=== PATIENT | male | born 1945 | race Caucasian/White ===

== ENCOUNTER 2024-11-17 21:12 | Inpatient (IN) ==
[2024-11-17] MEDS: FAMOTIDINE 20MG IV PUSH 20 MG/5 ML SYR IV STA (21:58)
[2024-11-17 22:08] LABS: Hematocrit (blood only) 44.9 % (42.0-52.0); Hemoglobin 14.5 g/dl (14.0-18.0); Immature Granulocytes # (auto) 0.02 K/uL (0.01-0.20); Immature Granulocytes % (auto) 0.2 %; Mean Corpuscular Hemoglobin 29.8 pg (25.0-34.0); Mean Corpuscular Volume 92.2 fL (80.0-100.0); Platelet Count 176 K/uL (130-400); RDW Standard Deviation 46.9 fL (36.4-46.3); Red Blood Count 4.87 M/uL (4.70-6.10); White Blood Count 8.15 K/ul (4.8-10.8)
[2024-11-17 22:24] LABS: Alanine Aminotransferase 19.0 U/L (7-52); Albumin Globulin Ratio 1.9 (0.9-2); Alkaline Phosphatase 60.0 U/L (34-104); Anion Gap 8.0 (3-11); Bilirubin,Total 0.6 mg/dl (0.2-1.0); Blood Urea Nitrogen 23.0 mg/dl (6-23); Calcium 9.8 mg/dl (8.6-10.3); Carbon Dioxide 24.0 mmol/L (21-32); Chloride 111.0 mmol/L (98-107); Creatinine Clr Calc Pharmacy 49.1 ml/min; Globulin 2.3 gm/dl (2.5-4.0); Glucose 111.0 mg/dl (70-99(Fasting)); Magnesium 2.2 mg/dl (1.7-2.4); Potassium 4.1 mmol/L (3.5-5.1); Sodium 143.0 mmol/L (136-145); Total Protein 6.6 gm/dl (6.0-8.3)
[2024-11-17] MEDS: OPTIRAY 320 100ml IV ONE (22:44)
[2024-11-17 22:55] LABS: INR 1.0 (0.9-1.1); Partial Thromboplastin Time 30 Seconds (21-31); Prothrombin Time 11.1 Seconds (9.0-12.0)
--- NOTE | 2024-11-17 23:50 | CT Scan Report ---
Exam(s): CT ABDOMEN + PELVIS With Contrast IV Amt: 93 cc's optiray 320 EXAM: CT Abdomen and Pelvis With Intravenous Contrast CLINICAL HISTORY: Reason for exam: lower abd pain, rectal bleed. TECHNIQUE: Axial computed tomography images of the abdomen and pelvis with intravenous contrast. CTDI is 25.99 mGy and DLP is 1496.73 mGy-cm. Automated exposure control was utilized for the study. A dose lowering technique was utilized adhering to the principles of ALARA. CONTRAST: Patient received 93 cc's optiray 320 of IV contrast COMPARISON: No relevant prior studies available. FINDINGS: Lung bases: Unremarkable. Heart: Coronary artery atherosclerosis. Mediastinum: Large hiatal hernia. ABDOMEN: Liver: Unremarkable. No mass. Gallbladder and bile ducts: Contracted gallbladder. No calcified stones. No ductal dilation. Pancreas: Unremarkable. No mass. No ductal dilation. Spleen: Unremarkable. No splenomegaly. Adrenals: Unremarkable. No mass. Kidneys and ureters: Unremarkable. No solid mass. No hydronephrosis. Stomach and bowel: Left hemicolon diverticulosis without evidence of acute diverticulitis. Intraluminal hyperdensity arising from the proximal sigmoid colon and extending distally to the rectum concerning for active gastrointestinal bleeding. No obstruction. PELVIS: Appendix: No evidence of appendicitis. Bladder: Unremarkable. No mass. Reproductive: Prostatomegaly. ABDOMEN and PELVIS: Intraperitoneal space: Unremarkable. No free air, significant free fluid, or fluid collection. Bones/joints: Degenerative change in the lumbar spine. No acute fracture. No dislocation. Soft tissues: Unremarkable. Vasculature: Atherosclerosis. Lymph nodes: Unremarkable. No enlarged lymph nodes. IMPRESSION: Intraluminal hyperdensity arising from the proximal sigmoid colon and extending distally to the rectum concerning for active gastrointestinal bleeding. Communications: Call Doctor Active Bleeding in any site Electronically signed by: Diane Marshall M.D. 11/17/24 23:49 PM
--- NOTE | 2024-11-17 23:54 | Emergency Department Note ---
History of Present Illness General Chief complaint: Rectal Bleed Stated complaint: RECTAL BLEEDING Time Seen by Provider: 11/17/24 21:26 History of Present Illness This 79-year-old male on Plavix for history of coronary artery disease presents to the ER for rectal bleeding. Patient states he felt some fullness in his rectum went to the bathroom and had an episode of bright red bleeding. This happened twice. He has had some mild leakage of blood. Nothing hemorrhaging. No history of GI bleeding in the past. Colonoscopy 9 years ago was normal. Patient has chest pain, dyspnea, lightheadedness, dizziness. No other blood thinners. No stool no blood. Home Medications Medication Instructions Recorded Confirmed Type levothyroxine 112 mcg tablet 112 mcg PO QAM 05/12/18 11/17/24 History (Synthroid) losartan 25 mg tablet 25 mg PO QAM 05/12/18 11/17/24 History metoprolol tartrate 50 mg tablet 25 mg PO BIDM 06/26/19 11/17/24 History rosuvastatin 20 mg tablet 20 mg PO HS 08/03/22 11/17/24 History clopidogrel 75 mg tablet 75 mg PO QAM #90 tabs 05/12/24 11/17/24 Rx Allergies Allergy/AdvReac Type Severity Reaction Status Date / Time No Known Allergies Allergy Verified 11/17/24 22:46 Past Med/Surg History Problem List (Updated 11/18/24 @ 00:30 by Mihaela Crowe PA-C) Hemorrhage of large intestine due to diverticular disease (Acute) Melena Encounter for pre-operative examination Hypertension Dyslipidemia CAD (coronary artery disease) Medical History Anemia CAD (coronary artery disease) Hyperlipidemia Hypertension Hypothyroidism Myocardial Infarction hx of 1990--heart cath with no stent--follows with Dr. Welch On anticoagulant therapy plavix daily Surgical History History of cardiac cath x3--1998 with no stent placed, 03/2008 with 2 stents placed and last 06/2020 @ [facility] with 1 stent placed History of colonoscopy History of esophagogastroduodenoscopy (EGD) History of heart artery stent 3 total--last 1 placed 06/2020, previous 2 placed 03/2008 History of surgical procedure on eye proper using laser History of tonsillectomy Family History Other No family history of adverse response to anesthesia Social History Smoking Status: Former smoker Tobacco Type: Cigarettes Smoking End Date: 1987; Second Hand Exposure: No; Do You Dip or Chew Tobacco: No; Hx Alcohol Use: No Hx Substance Use: No Preferred Language: Hungarian Communication Ability: Effective Loan Administrator Required: No Beliefs That Will Affect Care: None Current Living Situation: Spouse Other Information That Helps Us Care for You: No Feels Safe at Home: Yes Safety Concerns: Feels Safe At This Time Assistive Devices: Glasses and Hearing Aid - Bilateral Review of Systems A total of 10 systems reviewed and were otherwise negative Physical Exam Vital Signs Vital Signs - 24 hr 11/17/24 21:14 11/17/24 21:23 11/17/24 21:48 Temperature 36.5 C Temperature Source Temporal Artery Scan Pulse Rate 114 H 96 H 96 H Pulse Rhythm Regular Respiratory Rate 18 24 20 Respiratory Effort / Characteristics Non-Labored Spontaneous Respiratory Depth Normal Respiratory Pattern Regular Blood Pressure 122/75 165/112 H Blood Pressure Mean 90 126 Blood Pressure Position Sitting Pulse Oximetry 93 91 92 Oxygen Delivery Method Room Air Room Air Sepsis Recent Fever Within 48 Hours No Sepsis New/Unexplained Change in Mental Status N/A Sepsis Action Taken by Nursing No Action Required 11/17/24 22:00 11/17/24 22:30 11/17/24 23:00 Temperature Temperature Source Pulse Rate 92 H 94 H 84 Pulse Rhythm Respiratory Rate 20 22 20 Respiratory Effort / Characteristics Respiratory Depth Respiratory Pattern Blood Pressure 125/96 118/80 131/96 Blood Pressure Mean 105 100 107 Blood Pressure Position Pulse Oximetry 93 93 94 Oxygen Delivery Method Sepsis Recent Fever Within 48 Hours Sepsis New/Unexplained Change in Mental Status Sepsis Action Taken by Nursing 11/17/24 23:30 11/18/24 00:00 11/18/24 00:30 Temperature Temperature Source Pulse Rate 85 79 84 Pulse Rhythm Respiratory Rate 21 14 20 Respiratory Effort / Characteristics Respiratory Depth Respiratory Pattern Blood Pressure 137/90 126/81 124/92 Blood Pressure Mean 105 105 97 Blood Pressure Position Pulse Oximetry 95 96 94 Oxygen Delivery Method Sepsis Recent Fever Within 48 Hours Sepsis New/Unexplained Change in Mental Status Sepsis Action Taken by Nursing 11/18/24 01:00 Temperature Temperature Source Pulse Rate 78 Pulse Rhythm Respiratory Rate 15 Respiratory Effort / Characteristics Respiratory Depth Respiratory Pattern Blood Pressure 135/99 Blood Pressure Mean 111 Blood Pressure Position Pulse Oximetry 94 Oxygen Delivery Method Sepsis Recent Fever Within 48 Hours Sepsis New/Unexplained Change in Mental Status Sepsis Action Taken by Nursing VITALS: Vitals are noted on the nurse's note and reviewed by myself. Vital signs stable. GENERAL: Pleasant gentleman, in no acute distress, nondiaphoretic, well- developed well-nourished. SKIN: Capillary reflex less than 2 seconds. HEENT: Normocephalic. PERRLA. EOMI. Nares patent. Mucous membranes moist. Neck is supple without nuchal rigidity. HEART: Regular rate and rhythm LUNGS: Clear to auscultation bilaterally without wheezes, rales or rhonchi. No retractions or accessory muscle use. ABDOMEN: Positive bowel sounds x 4. Normal tympanic percussion. Soft, mild lower abdominal tenderness, without masses or organomegaly. Jean Baptiste sign negative. No guarding or rebound tenderness. no CVA tenderness Rectal exam: Multiple hemorrhoids, blood in the vault, no fissures or tears. MUSCULOSKELETAL: No gross musculoskeletal defects. NEURO: Patient was alert and oriented to person place and time. No focal neurological deficits. Course Administered Medications Discontinued Medications Pantoprazole Sodium 80 mg/ (Dextrose) 120 mls @ 480 mls/hr IV ONE STA Stop: 11/17/24 22:02 Last Infusion: 11/17/24 23:35 Dose: Infused Documented By: Admin: 11/17/24 23:02 Dose: 480 mls/hr Documented By: MIRNA Famotidine (Pepcid 20mg Iv Push) 20 mg in 5 mls @ 2.5 mls/min IV NOW STA Stop: 11/17/24 21:49 Last Admin: 11/17/24 21:58 Dose: 2.5 mls/min Documented By: MIRNA Piperacillin Sod/Tazobactam Sod (Zosyn) 4.5 gm in 100 mls @ 200 mls/hr IV NOW ONE; Protocol Stop: 11/18/24 00:31 Last Infusion: 11/18/24 01:18 Dose: Infused Documented By: Admin: 11/18/24 00:48 Dose: 200 mls/hr Documented By: MIRNA Ioversol (Optiray 320 100ml) 93 ml IV ONCE ONE Stop: 11/17/24 22:45 Last Admin: 11/17/24 22:44 Dose: 93 ml Documented By: ASHLIE Medical Decision Making Medical Records Attestation: I reviewed the patient's medical records. Home Medications Current Medication List: was personally reviewed by me Laboratory Data Attestation: I reviewed the patient's lab results. 11/17/24 23:37 11/17/24 21:26 Lab Results 11/17/24 11/17/24 11/17/24 Range/Units 21:26 21:28 23:37 WBC 8.15 (4.8-10.8) K/ul RBC 4.87 (4.70-6.10) M/uL Hgb 14.5 12.6 L (14.0-18.0) g/dl Hct 44.9 39.8 L (42.0-52.0) % MCV 92.2 (80.0-100.0) fL MCH 29.8 (25.0-34.0) pg MCHC 32.3 (32.0-36.0) g/dL RDW Std Deviation 46.9 H (36.4-46.3) fL RDW Coeff of Kamini 13.8 (11.5-14.5) % Plt Count 176 (130-400) K/uL MPV 10.6 (9.4-12.4) fL Immature Gran % (Auto) 0.2 % Neut % (Auto) 65.0 % Lymph % (Auto) 19.0 % [place] % (Auto) 14.2 % Eos % (Auto) 1.1 % Baso % (Auto) 0.5 % Neut # (Auto) 5.29 (1.40-6.50) K/uL Lymph # (Auto) 1.55 (1.20-3.40) K/uL [place] # (Auto) 1.16 H (0.11-0.59) K/uL Eos # (Auto) 0.09 (0.00-0.50) K/uL Baso # (Auto) 0.04 (0.00-0.20) K/uL Immature Gran # (Auto) 0.02 (0.01-0.20) K/uL PT 11.1 (9.0-12.0) Seconds INR 1.0 (0.9-1.1) APTT 30 (21-31) Seconds PTT Ratio 1.1 Sodium 143 (136-145) mmol/L Potassium 4.1 (3.5-5.1) mmol/L Chloride 111 H (98-107) mmol/L Carbon Dioxide 24 (21-32) mmol/L Anion Gap 8 (3-11) BUN 23 (6-23) mg/dl Creatinine 1.44 H (0.6-1.4) mg/dl Est Cr Clr Drug Dosing 49.1 ml/min eGFR 49.74 BUN/Creatinine Ratio 16.0 (10-20) Glucose 111 H (70-99(Fasting)) mg/dl Calcium 9.8 (8.6-10.3) mg/dl Magnesium 2.2 (1.7-2.4) mg/dl Total Bilirubin 0.6 (0.2-1.0) mg/dl AST 17 (13-39) U/L ALT 19 (7-52) U/L Alkaline Phosphatase 60 (34-104) U/L Troponin I High Sens 12.1 (0-20) pg/ml Total Protein 6.6 (6.0-8.3) gm/dl Albumin 4.3 (3.4-5.0) gm/dl Globulin 2.3 L (2.5-4.0) gm/dl Albumin/Globulin Ratio 1.9 (0.9-2) Blood Type A Positive Antibody Screen NEGATIVE Imaging Data Attestation: I personally reviewed and interpreted this imaging study as follows: Radiologist's Impression: Abdomen/Pelvis CT 11/17/24 21:48 CR Exam(s): CT ABDOMEN + PELVIS With Contrast IV Amt: 93 cc's optiray 320 EXAM: CT Abdomen and Pelvis With Intravenous Contrast CLINICAL HISTORY: Reason for exam: lower abd pain, rectal bleed. TECHNIQUE: Axial computed tomography images of the abdomen and pelvis with intravenous contrast. CTDI is 25.99 mGy and DLP is 1496.73 mGy-cm. Automated exposure control was utilized for the study. A dose lowering technique was utilized adhering to the principles of ALARA. CONTRAST: Patient received 93 cc's optiray 320 of IV contrast COMPARISON: No relevant prior studies available. FINDINGS: Lung bases: Unremarkable. Heart: Coronary artery atherosclerosis. Mediastinum: Large hiatal hernia. ABDOMEN: Liver: Unremarkable. No mass. Gallbladder and bile ducts: Contracted gallbladder. No calcified stones. No ductal dilation. Pancreas: Unremarkable. No mass. No ductal dilation. Spleen: Unremarkable. No splenomegaly. Adrenals: Unremarkable. No mass. Kidneys and ureters: Unremarkable. No solid mass. No hydronephrosis. Stomach and bowel: Left hemicolon diverticulosis without evidence of acute diverticulitis. Intraluminal hyperdensity arising from the proximal sigmoid colon and extending distally to the rectum concerning for active gastrointestinal bleeding. No obstruction. PELVIS: Appendix: No evidence of appendicitis. Bladder: Unremarkable. No mass. Reproductive: Prostatomegaly. ABDOMEN and PELVIS: Intraperitoneal space: Unremarkable. No free air, significant free fluid, or fluid collection. Bones/joints: Degenerative change in the lumbar spine. No acute fracture. No dislocation. Soft tissues: Unremarkable. Vasculature: Atherosclerosis. Lymph nodes: Unremarkable. No enlarged lymph nodes. IMPRESSION: Intraluminal hyperdensity arising from the proximal sigmoid colon and extending distally to the rectum concerning for active gastrointestinal bleeding. Communications: Call Doctor Active Bleeding in any site Electronically signed by: Diane Marshall M.D. 11/17/24 23:49 PM [facility] Narrative Prior records/ancillary studies reviewed. Triage Nursing notes reviewed. Additional history obtained from the family. The patient's history was concerning for possible gastrointestinal bleeding. Differential diagnosis: Etiologies such as diverticulosis, AVM, coagulopathy, colitis, inflammatory bowel disease, malignancy, Yuliya-Fritz tear, esophagitis, peptic ulcer disease, variceal bleed, gastritis, epistaxis, fissure, hemorrhoids, as well as others were entertained. Physical exam: As above. The patients vital signs were stable. ER treatment provided: An order was placed for continuous cardiac monitoring. The monitor shows a rate of 60-100 with a sinus rhythm per my interpretation. Pepcid and Protonix were ordered. Type and screen was sent On reassessment the patient felt better. Diagnostics interpreted by me: ECG: Ordered for GI bleed EKG: Normal sinus, ST depression in the lateral leads, no recent EKG. Impression normal sinus rhythm with ST depressions in the anterolateral leads independently interpreted by myself The labs Independently Interpreted by myself revealed stable H&H, negative troponin. No worrisome leukocytosis, creatinine 1.4 Imaging studies: Imaging was reviewed and read by radiology Consultation: A consultation was placed with GI, Dr. Larios. He recommends medical admission and supportive care. Consultation was placed with Dr. Zhu, hospitalist. The case was discussed and diagnostics were reviewed. The patient was evaluated in the ER for further treatment. This appears to be consistent with diverticular bleeding. GI and medicine were consulted. Patient was medicated as above. Type and screen was sent. Vital signs remained stable. Repeat H&H is lower than initial set.. He is on Plavix. GI recommends medical admission and will be consulted. Patient is agreeable treatment plan of admission. By the evaluation outlined above emergent etiologies such as esophageal perforation, peptic ulcer disease, variceal bleed, coagulopathy, gastritis, epistaxis, malignancy, as well as others were deemed relatively unlikely. The pt informed about the findings as listed above. All questions were answered and pleased with the treatment. The chart was completed utilizing [employer] Speech voice recognition software. Grammatical errors, random word insertions, pronoun errors, and incomplete sentences are an occassional consequence of this system due to software limitations, ambient noise, and hardware issues. Any formal questions or concerns about the content, text, or information contained within the body of this dictation should be directly addressed to the physician technology assistant for clarification. Impression & Plan Hemorrhage of large intestine due to diverticular disease Discharge Plan Visit Data Chief Complaint: Rectal Bleed Stated Complaint: RECTAL BLEEDING ED Provider: Afia William ED Midlevel Provider: Mihaela Crowe Discharge Problem: Hemorrhage of large intestine due to diverticular disease Patient Disposition: Admitted As Inpatient Condition: Fair Discharge Instructions Interventions: ED Discharge Assessment Last Done: 11/18/24 02:08
[2024-11-18] LABS: Hematocrit (blood only) 39.8 % (42.0-52.0); Hemoglobin 12.6 g/dl (14.0-18.0)
--- NOTE | 2024-11-18 00:03 | Emergency Department Note ---
ED Visit Note I was consulted by the Advanced Practice Provider. I personally made/approved the management plan and take responsibility for the patient management. This includes the aspects of: -History/Physical -MDM
[2024-11-18] MEDS: PIPERACILLIN/TAZOBACTAM 4.5 GM/100 ML BAG IV ONE (00:48)
--- NOTE | 2024-11-18 01:06 | History & Physical Report ---
Date of Service November 18, 2024 Assessment & Plan (1) Lower GI bleed: (2) Hypertension: (3) Dyslipidemia: (4) CAD (coronary artery disease): Plan 79yo male with history of HTN, HLP, CAD presenting with several episodes of passing large amounts of bright red blood per rectum. No abdominal pain. No nauseas/vomiting/hematemesis. Last bleed documented at 03:18 Hgb on arrival 14.5 -->> 12.6 CT results as above concerning for active bleed. Case and CT results was discussed between the ER and GI web application tester #Lower GIB - patient HD stable at present. Concerning finding of active bleed on CT imaging. Likely diverticular bleed? Diverticulosis noted on imaging. -Admit to PCU -Keep NPO -Maintain two large PIV (20g in Right forearm and 18g in Left antecub presently) -Monitor CBC q 6 hours - next at 0444. Transfuse for ongoing bleed, symptomatic anemia or Hgb < 8 in patient with known CAD. Patient has been consented for transfusion -GI consultation appreciated -Should bleeding worsen or patient become hemodynamically unstable ore requiring significant transfusion of blood products would need to pursue transfer to facility for IR embolization *Crossed for 2 units following most recent episode of LGIB. CBC is due at 0444. Patient remains HD stable and asymptomatic at this time. #CAD - patient denies chest pain, SOB. Troponin=12.1 -Hold Plavix, Losartan and Metoprolol for now -Continue Crestor #Hypertension -Hold antihypertensives in setting of active bleed - Metoprolol and Losartan #Hyperlipidemia -Continue Crestor #Hypothyroidism -Continue Synthroid History of Present Illness Chief Complaint: bright red blood per rectum Primary Care Provider: Roberto Leon MD Jovanny Glez is a pleasant 79yo male with history of HTN, HLP, CAD (s/p JACINDA to mid LAD 05/2018 and prior JACINDA to mid circumflex in 2007) on Plavix daily presenting with lower GI bleed. Patient reports this evening around 19:30 he had an episode of painless rectal bleeding. He reports passing a large amount of bright red blood into the toilet. He had a second episode approximately 75 minutes after the first and reports he has had recurrent episodes of bleeding ongoing approximately every 75 minutes. He reports some mild pressure in his lower abdomen but denies significant pain or cramping. He denies fever, chills, chest pain, SOB, dizziness. He has history of hemorrhoids but denies significant hemorrhoidal bleeding in the past. He has never had significant GIB in the past. He had his last colonoscopy at age 71 and was told that he likely would not need another. In the ER he is afebrile, HD stable He did have witnessed episodes of bleeding while in the ER He had another large, bloody BM at 03:18 ER Course: Pepcid 20mg IV Protonix 80mg IV Zosyn 4.5gm IV Allergies Allergy/AdvReac Type Severity Reaction Status Date / Time No Known Allergies Allergy Verified 11/17/24 22:46 Home Medications Medication Instructions Recorded Confirmed Type levothyroxine 112 mcg tablet 112 mcg PO QAM 05/12/18 11/17/24 History (Synthroid) losartan 25 mg tablet 25 mg PO QAM 05/12/18 11/17/24 History metoprolol tartrate 50 mg tablet 25 mg PO BIDM 06/26/19 11/17/24 History rosuvastatin 20 mg tablet 20 mg PO HS 08/03/22 11/17/24 History clopidogrel 75 mg tablet 75 mg PO QAM #90 tabs 05/12/24 11/17/24 Rx Past Med/Surg History Problem List (Updated 11/18/24 @ 03:37 by Patti Zhu DO) Lower GI bleed Hemorrhage of large intestine due to diverticular disease (Acute) Melena Encounter for pre-operative examination Hypertension Dyslipidemia CAD (coronary artery disease) Medical History Anemia On anticoagulant therapy plavix daily Myocardial Infarction hx of 1990--heart cath with no stent--follows with Dr. Welch Hypothyroidism Hypertension Hyperlipidemia Surgical History History of colonoscopy History of esophagogastroduodenoscopy (EGD) History of tonsillectomy History of surgical procedure on eye proper using laser History of heart artery stent 3 total--last 1 placed 06/2020, previous 2 placed 03/2008 History of cardiac cath x3--1998 with no stent placed, 03/2008 with 2 stents placed and last 06/2020 @ [facility] with 1 stent placed Family History Other No family history of adverse response to anesthesia Social History Smoking Status: Never smoker Second Hand Exposure: No; Do You Dip or Chew Tobacco: No; Hx Alcohol Use: No Hx Substance Use: No Preferred Language: Czech Communication Ability: Effective Director Perioperative Required: No Beliefs That Will Affect Care: None Current Living Situation: Spouse Feels Safe at Home: Yes Assistive Devices: Glasses Review of Systems Review of Systems: All systems reviewed & are unremarkable except as noted in HPI & below Physical Exam Physical Exam: General: patient resting comfortably, NAD, non-toxic in appearance, AA&O x 4 Skin: warm, dry, intact, no rashes or lesions HEENT: NC/AT, PERRL, EOMI, anicteric sclera, conjunctiva without injection, external ear normal to inspection and nontender, nares patent, moist mucus membranes, dentition intact, no oropharyngeal lesions, neck supple, trachea midline, no LAD, no thyromegaly, no JVD Heart: +S1/S2, regular, no m/r/g Lungs: equal air entry bilaterally, no rales/rhonchi/wheezes Abd: +BS, soft, NT/ND, no masses/organomegaly/ascites Ext: warm, 2+ pulses in UE/LE bilaterally, no clubbing/cyanosis or edema Neuro: nonfocal, patient AA&O x 4, speech intact, no facial droop, moving all extremities on command with equal strength 5/5 Results & Data Results & Data Vital Signs (Past 12 Hours) Vital Signs Temp Pulse Resp BP Pulse Ox O2 Del Method 11/17/24 23:30 85 21 137/90 95 11/17/24 23:00 84 20 131/96 94 11/17/24 22:30 94 H 22 118/80 93 11/17/24 22:00 92 H 20 125/96 93 11/17/24 21:48 96 H 20 92 Room Air 11/17/24 21:23 96 H 24 165/112 H 91 11/17/24 21:14 36.5 C 114 H 18 122/75 93 Room Air Laboratory Results Laboratory Results WBC 8.15 K/ul (4.8-10.8) 11/17/24 21: RBC 4.87 M/uL (4.70-6.10) 11/17/24 21: Hgb 12.6 g/dl (14.0-18.0) L 11/17/24 23:37 Hct 39.8 % (42.0-52.0) L 11/17/24 23:37 MCV 92.2 fL (80.0-100.0) 11/17/24 21: MCH 29.8 pg (25.0-34.0) 11/17/24 21: MCHC 32.3 g/dL (32.0-36.0) 11/17/24: RDW Std Deviation 46.9 fL (36.4-46.3) H 11/17/24: RDW Coeff of Kamini 13.8 % (11.5-14.5) 11/17/24: Plt Count 176 K/uL (130-400) 11/17/24: MPV 10.6 fL (9.4-12.4) 11/17/24 21: Immature Gran % (Auto) 0.2 % 11/17/24: Neut % (Auto) 65.0 % 11/17/24: Lymph % (Auto) 19.0 % 11/17/24: [place] % (Auto) 14.2 % 11/17/24: Eos % (Auto) 1.1 % 11/17/24: Baso % (Auto) 0.5 % 11/17/24: Neut # (Auto) 5.29 K/uL (1.40-6.50) 11/17/24 21: Lymph # (Auto) 1.55 K/uL (1.20-3.40) 11/17/24: [place] # (Auto) 1.16 K/uL (0.11-0.59) H 11/17/24: Eos # (Auto) 0.09 K/uL (0.00-0.50) 11/17/24: Baso # (Auto) 0.04 K/uL (0.00-0.20) 11/17/24: Immature Gran # (Auto) 0.02 K/uL (0.01-0.20) 11/17/24 21: PT 11.1 Seconds (9.0-12.0) 11/17/24 21: INR 1.0 (0.9-1.1) 11/17/24 21: APTT 30 Seconds (21-31) 11/17/24: PTT Ratio 1.1 11/17/24 21: Sodium 143 mmol/L (136-145) 11/17/24 21: Potassium 4.1 mmol/L (3.5-5.1) 11/17/24 21: Chloride 111 mmol/L (98-107) H 11/17/24 21: Carbon Dioxide 24 mmol/L (21-32) 11/17/24: Anion Gap 8 (3-11) 11/17/24 21: BUN 23 mg/dl (6-23) 11/17/24: Creatinine 1.44 mg/dl (0.6-1.4) H 11/17/24: Est Cr Clr Drug Dosing 49.1 ml/min 11/17/24 21: eGFR 49.74 11/17/24: BUN/Creatinine Ratio 16.0 (10-20) 11/17/24: Glucose 111 mg/dl (70-99(Fasting)) H 11/17/24: Calcium 9.8 mg/dl (8.6-10.3) 11/17/24: Magnesium 2.2 mg/dl (1.7-2.4) 11/17/24: Total Bilirubin 0.6 mg/dl (0.2-1.0) 11/17/24 21: AST 17 U/L (13-39) 11/17/24 21: ALT 19 U/L (7-52) 11/17/24 21: Alkaline Phosphatase 60 U/L (34-104) 11/17/24: Troponin I High Sens 12.1 pg/ml (0-20) 11/17/24: Total Protein 6.6 gm/dl (6.0-8.3) 11/17/24: Albumin 4.3 gm/dl (3.4-5.0) 07/12/25 21:26 Globulin 2.3 gm/dl (2.5-4.0) L 11/17/24 21:26 Albumin/Globulin Ratio 1.9 (0.9-2) 11/17/24 21:26 Blood Type A Positive 11/17/24 21:28 Antibody Screen NEGATIVE 11/17/24 21:28 Impressions Abdomen/Pelvis CT 11/17/24 21:48 CR Exam(s): CT ABDOMEN + PELVIS With Contrast IV Amt: 93 cc's optiray 320 EXAM: CT Abdomen and Pelvis With Intravenous Contrast CLINICAL HISTORY: Reason for exam: lower abd pain, rectal bleed. TECHNIQUE: Axial computed tomography images of the abdomen and pelvis with intravenous contrast. CTDI is 25.99 mGy and DLP is 1496.73 mGy-cm. Automated exposure control was utilized for the study. A dose lowering technique was utilized adhering to the principles of ALARA. CONTRAST: Patient received 93 cc's optiray 320 of IV contrast COMPARISON: No relevant prior studies available. FINDINGS: Lung bases: Unremarkable. Heart: Coronary artery atherosclerosis. Mediastinum: Large hiatal hernia. ABDOMEN: Liver: Unremarkable. No mass. Gallbladder and bile ducts: Contracted gallbladder. No calcified stones. No ductal dilation. Pancreas: Unremarkable. No mass. No ductal dilation. Spleen: Unremarkable. No splenomegaly. Adrenals: Unremarkable. No mass. Kidneys and ureters: Unremarkable. No solid mass. No hydronephrosis. Stomach and bowel: Left hemicolon diverticulosis without evidence of acute diverticulitis. Intraluminal hyperdensity arising from the proximal sigmoid colon and extending distally to the rectum concerning for active gastrointestinal bleeding. No obstruction. PELVIS: Appendix: No evidence of appendicitis. Bladder: Unremarkable. No mass. Reproductive: Prostatomegaly. ABDOMEN and PELVIS: Intraperitoneal space: Unremarkable. No free air, significant free fluid, or fluid collection. Bones/joints: Degenerative change in the lumbar spine. No acute fracture. No dislocation. Soft tissues: Unremarkable. Vasculature: Atherosclerosis. Lymph nodes: Unremarkable. No enlarged lymph nodes. IMPRESSION: Intraluminal hyperdensity arising from the proximal sigmoid colon and extending distally to the rectum concerning for active gastrointestinal bleeding. Communications: Call Doctor Active Bleeding in any site Electronically signed by: Diane Marshall M.D. 11/17/24 23:49 PM PG Care Time/CCT Total # of Minutes Spent Total Time Spent with Patient: Total time spent is greater than 50% in coordination of care (as documented) at patient's floor/unit and/or counseling patient: Coding Level of Care Code 32335 INT INP/OBS CARE MIN Diagnoses Lower GI bleed K92.2 Hypertension I10 Dyslipidemia E78.5 CAD (coronary artery disease) I25.10
[2024-11-18] MEDS ORDERED: ACETAMINOPHEN 325 MG TAB PO PRN (02:42)
[2024-11-18] MEDS ORDERED: ONDANSETRON INJ 2 MG/ML 2 ML VIAL IV PRN (02:42)
[2024-11-18] MEDS ORDERED: SODIUM CHLORIDE 0.9% 100 ML IV PRN (03:47)
[2024-11-18 04:51] LABS: Hematocrit (blood only) 37.6 % (42.0-52.0); Hemoglobin 11.8 g/dl (14.0-18.0); Mean Corpuscular Hemoglobin 29.4 pg (25.0-34.0); Mean Corpuscular Volume 93.5 fL (80.0-100.0); Platelet Count 170 K/uL (130-400); RDW Standard Deviation 47.2 fL (36.4-46.3); Red Blood Count 4.02 M/uL (4.70-6.10); White Blood Count 9.44 K/ul (4.8-10.8)
[2024-11-18] MEDS: LEVOTHYROXINE SODIUM 112 MCG TABLET PO SCH (06:35)
--- NOTE | 2024-11-18 09:23 | Gastrointestinal Consultation ---
Date of Consultation November 18, 2024 Assessment & Plan (1) Lower GI bleed: Pleasant man with what sounds like a diverticular hemorrhage. The fortunate part is that since he hasn't had a bowel movement in the last four hours or so I suspect he has stopped bleeding. The CTA is fairly diagnostic for that as well. I do think he needs colonoscopy done but it can be more elective--either before discharge or electively as an outpatient. Would observe him today and follow H/H. Can consider liquid diet if he doesn't pass any more blood (other than clearing old blood). Will follow History of Present Illness Reason for Consultation: rectal bleeding Attending Physician: Alicia Yates MD History of Present Illness 79 year old man who started last night having blood drip out of his rectum. Drove home about 45 minutes and then passed a large bloody bowel movement. This continued through the night about "every 70 minutes or so" but he has not had a bowel movement in the last 4 hours. He had no pain with the bleeding. He has never had this before. He says his last colonoscopy was at age 71 but he isn't sure who did it. He does take plavix for stents. He has no other GI complaints. CTA in the ED showed bleeding from the sigmoid colon. Allergies Allergy/AdvReac Type Severity Reaction Status Date / Time No Known Allergies Allergy Verified 11/17/24 22:46 Home Medications Medication Instructions Recorded Confirmed Type levothyroxine 112 mcg tablet 112 mcg PO QAM 05/12/18 11/17/24 History (Synthroid) losartan 25 mg tablet 25 mg PO QAM 05/12/18 11/17/24 History metoprolol tartrate 50 mg tablet 25 mg PO BIDM 06/26/19 11/17/24 History rosuvastatin 20 mg tablet 20 mg PO HS 08/03/22 11/17/24 History clopidogrel 75 mg tablet 75 mg PO QAM #90 tabs 05/12/24 11/17/24 Rx Patient History Medical History Anemia On anticoagulant therapy plavix daily Myocardial Infarction hx of 1990--heart cath with no stent--follows with Dr. Welch Hypothyroidism Hypertension Hyperlipidemia Surgical History History of colonoscopy History of esophagogastroduodenoscopy (EGD) History of tonsillectomy History of surgical procedure on eye proper using laser History of heart artery stent 3 total--last 1 placed 06/2020, previous 2 placed 03/2008 History of cardiac cath x3--1998 with no stent placed, 03/2008 with 2 stents placed and last 06/2020 @ [facility] with 1 stent placed Family History Other No family history of adverse response to anesthesia Social History Smoking Status: Former smoker Tobacco Type: Cigarettes Smoking End Date: 1987; Second Hand Exposure: No; Do You Dip or Chew Tobacco: No; Hx Alcohol Use: No Hx Substance Use: No Preferred Language: Italian Communication Ability: Effective Form Setter Supervisor Required: No Beliefs That Will Affect Care: None Current Living Situation: Spouse Other Information That Helps Us Care for You: No Feels Safe at Home: Yes Safety Concerns: Feels Safe At This Time Assistive Devices: Glasses and Hearing Aid - Bilateral Review of Systems Review of Systems: All systems reviewed & are unremarkable except as noted in HPI & below Physical Exam Constitutional: WD/WN, vitals as above Neck: trachea midline, no thyromegaly Respiratory: normal respiratory effort, lungs clear to auscultation Cardiovascular: RRR, no murmur, no edema Gastrointestinal (Abdomen): normal bowel sounds, soft, nontender, no hepatosplenomegaly Results & Data Vital Signs (Past 12 Hours) Vital Signs Temp Pulse Pulse Pulse Resp BP BP 11/18/24 07:29 36.5 C 85 20 127/83 11/18/24 07:00 77 11/18/24 05:00 76 118/80 11/18/24 04:45 73 124/85 11/18/24 04:40 108/71 11/18/24 03:18 36.5 C 80 19 11/18/24 03:00 73 11/18/24 02:00 85 16 122/84 11/18/24 01:00 78 15 135/99 11/18/24 00:30 84 20 124/92 11/18/24 00:00 79 14 126/81 11/17/24 23:30 85 21 137/90 11/17/24 23:00 84 20 131/96 11/17/24 22:30 94 H 22 118/80 11/17/24 22:00 92 H 20 125/96 11/17/24 21:48 96 H 20 11/17/24 21:23 96 H 24 165/112 H BP Pulse Ox O2 Del Method 11/18/24 07:29 97 Room Air 11/18/24 07:00 11/18/24 05:00 96 Room Air 11/18/24 04:45 96 Room Air 11/18/24 04:40 11/18/24 03:18 124/85 95 Room Air 11/18/24 03:00 11/18/24 02:00 94 11/18/24 01:00 94 11/18/24 00:30 94 11/18/24 00:00 96 11/17/24 23:30 95 11/17/24 23:00 94 11/17/24 22:30 93 11/17/24 22:00 93 11/17/24 21:48 92 Room Air 11/17/24 21:23 91 Laboratory Results 11/18/24 11/17/24 11/17/24 Range/Units 04:43 23:37 21:28 WBC 9.44 (4.8-10.8) K/ul RBC 4.02 L (4.70-6.10) M/uL Hgb 11.8 L 12.6 L (14.0-18.0) g/dl Hct 37.6 L 39.8 L (42.0-52.0) % MCV 93.5 (80.0-100.0) fL MCH 29.4 (25.0-34.0) pg MCHC 31.4 L (32.0-36.0) g/dL RDW Std Deviation 47.2 H (36.4-46.3) fL RDW Coeff of Kamini 13.9 (11.5-14.5) % Plt Count 170 (130-400) K/uL MPV 10.5 (9.4-12.4) fL Immature Gran % (Auto) % Neut % (Auto) % Lymph % (Auto) % [place] % (Auto) % Eos % (Auto) % Baso % (Auto) % Neut # (Auto) (1.40-6.50) K/uL Lymph # (Auto) (1.20-3.40) K/uL [place] # (Auto) (0.11-0.59) K/uL Eos # (Auto) (0.00-0.50) K/uL Baso # (Auto) (0.00-0.20) K/uL Immature Gran # (Auto) (0.01-0.20) K/uL PT (9.0-12.0) Seconds INR (0.9-1.1) APTT (21-31) Seconds PTT Ratio Sodium (136-145) mmol/L Potassium (3.5-5.1) mmol/L Chloride (98-107) mmol/L Carbon Dioxide (21-32) mmol/L Anion Gap (3-11) BUN (6-23) mg/dl Creatinine (0.6-1.4) mg/dl Est Cr Clr Drug Dosing ml/min eGFR BUN/Creatinine Ratio (10-20) Glucose (70-99(Fasting)) mg/dl Calcium (8.6-10.3) mg/dl Magnesium (1.7-2.4) mg/dl Total Bilirubin (0.2-1.0) mg/dl AST (13-39) U/L ALT (7-52) U/L Alkaline Phosphatase (34-104) U/L Troponin I High Sens (0-20) pg/ml Total Protein (6.0-8.3) gm/dl Albumin (3.4-5.0) gm/dl Globulin (2.5-4.0) gm/dl Albumin/Globulin Ratio (0.9-2) Blood Type A Positive Blood Type Recheck A Positive Antibody Screen NEGATIVE 11/17/24 Range/Units 21:26 WBC 8.15 (4.8-10.8) K/ul RBC 4.87 (4.70-6.10) M/uL Hgb 14.5 (14.0-18.0) g/dl Hct 44.9 (42.0-52.0) % MCV 92.2 (80.0-100.0) fL MCH 29.8 (25.0-34.0) pg MCHC 32.3 (32.0-36.0) g/dL RDW Std Deviation 46.9 H (36.4-46.3) fL RDW Coeff of Kamini 13.8 (11.5-14.5) % Plt Count 176 (130-400) K/uL MPV 10.6 (9.4-12.4) fL Immature Gran % (Auto) 0.2 % Neut % (Auto) 65.0 % Lymph % (Auto) 19.0 % [place] % (Auto) 14.2 % Eos % (Auto) 1.1 % Baso % (Auto) 0.5 % Neut # (Auto) 5.29 (1.40-6.50) K/uL Lymph # (Auto) 1.55 (1.20-3.40) K/uL Bryan # (Auto) 1.16 H (0.11-0.59) K/uL Eos # (Auto) 0.09 (0.00-0.50) K/uL Baso # (Auto) 0.04 (0.00-0.20) K/uL Immature Gran # (Auto) 0.02 (0.01-0.20) K/uL PT 11.1 (9.0-12.0) Seconds INR 1.0 (0.9-1.1) APTT 30 (21-31) Seconds PTT Ratio 1.1 Sodium 143 (136-145) mmol/L Potassium 4.1 (3.5-5.1) mmol/L Chloride 111 H (98-107) mmol/L Carbon Dioxide 24 (21-32) mmol/L Anion Gap 8 (3-11) BUN 23 (6-23) mg/dl Creatinine 1.44 H (0.6-1.4) mg/dl Est Cr Clr Drug Dosing 49.1 ml/min eGFR 49.74 BUN/Creatinine Ratio 16.0 (10-20) Glucose 111 H (70-99(Fasting)) mg/dl Calcium 9.8 (8.6-10.3) mg/dl Magnesium 2.2 (1.7-2.4) mg/dl Total Bilirubin 0.6 (0.2-1.0) mg/dl AST 17 (13-39) U/L ALT 19 (7-52) U/L Alkaline Phosphatase 60 (34-104) U/L Troponin I High Sens 12.1 (0-20) pg/ml Total Protein 6.6 (6.0-8.3) gm/dl Albumin 4.3 (3.4-5.0) gm/dl Globulin 2.3 L (2.5-4.0) gm/dl Albumin/Globulin Ratio 1.9 (0.9-2) Blood Type Blood Type Recheck Antibody Screen Diagnostic Findings Abdomen/Pelvis CT 11/17/24 21:48 CR Exam(s): CT ABDOMEN + PELVIS With Contrast IV Amt: 93 cc's optiray 320 EXAM: CT Abdomen and Pelvis With Intravenous Contrast CLINICAL HISTORY: Reason for exam: lower abd pain, rectal bleed. TECHNIQUE: Axial computed tomography images of the abdomen and pelvis with intravenous contrast. CTDI is 25.99 mGy and DLP is 1496.73 mGy-cm. Automated exposure control was utilized for the study. A dose lowering technique was utilized adhering to the principles of ALARA. CONTRAST: Patient received 93 cc's optiray 320 of IV contrast COMPARISON: No relevant prior studies available. FINDINGS: Lung bases: Unremarkable. Heart: Coronary artery atherosclerosis. Mediastinum: Large hiatal hernia. ABDOMEN: Liver: Unremarkable. No mass. Gallbladder and bile ducts: Contracted gallbladder. No calcified stones. No ductal dilation. Pancreas: Unremarkable. No mass. No ductal dilation. Spleen: Unremarkable. No splenomegaly. Adrenals: Unremarkable. No mass. Kidneys and ureters: Unremarkable. No solid mass. No hydronephrosis. Stomach and bowel: Left hemicolon diverticulosis without evidence of acute diverticulitis. Intraluminal hyperdensity arising from the proximal sigmoid colon and extending distally to the rectum concerning for active gastrointestinal bleeding. No obstruction. PELVIS: Appendix: No evidence of appendicitis. Bladder: Unremarkable. No mass. Reproductive: Prostatomegaly. ABDOMEN and PELVIS: Intraperitoneal space: Unremarkable. No free air, significant free fluid, or fluid collection. Bones/joints: Degenerative change in the lumbar spine. No acute fracture. No dislocation. Soft tissues: Unremarkable. Vasculature: Atherosclerosis. Lymph nodes: Unremarkable. No enlarged lymph nodes. IMPRESSION: Intraluminal hyperdensity arising from the proximal sigmoid colon and extending distally to the rectum concerning for active gastrointestinal bleeding. Communications: Call Doctor Active Bleeding in any site Electronically signed by: Diane Marshall M.D. 11/17/24 23:49 PM
[2024-11-18 09:34] LABS: Hematocrit (blood only) 36.2 % (42.0-52.0); Hemoglobin 11.7 g/dl (14.0-18.0)
[2024-11-18 09:52] LABS: Anion Gap 4.0 (3-11); Blood Urea Nitrogen 24.0 mg/dl (6-23); Calcium 9.0 mg/dl (8.6-10.3); Carbon Dioxide 25.0 mmol/L (21-32); Chloride 112.0 mmol/L (98-107); Creatinine Clr Calc Pharmacy 67.4 ml/min; Glucose 140.0 mg/dl (70-99(Fasting)); Potassium 4.5 mmol/L (3.5-5.1); Sodium 141.0 mmol/L (136-145)
[2024-11-18 10:42] LABS: Hematocrit (blood only) 35.6 % (42.0-52.0); Hemoglobin 11.6 g/dl (14.0-18.0); Mean Corpuscular Hemoglobin 30.3 pg (25.0-34.0); Mean Corpuscular Volume 93.0 fL (80.0-100.0); Platelet Count 156 K/uL (130-400); RDW Standard Deviation 47.7 fL (36.4-46.3); Red Blood Count 3.83 M/uL (4.70-6.10); White Blood Count 7.36 K/ul (4.8-10.8)
--- NOTE | 2024-11-18 12:24 | Communication Note ---
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 Does not feel any abdominal pain / pressure or cramping currently. No dyspnea or chest pain. AOx4, lungs CTAB, heart reg no mrg, not tachycardic, abd s/nt/nd +BT. Ext wwp no edema. A/P: #Acute lower GI bleed - likely sigmoid diverticular bleed. Active sigmoid bleeding seen on CT #Acute blood loss anemia -last bloody BM early this AM, potentially has stopped -last three H/H are stable at 11.5 -reviewed recs in Dr. Larios's note -continue to monitor stools, H/H, start clear liquid diet -eventual colonoscopy # CAD, abnormal EKG # Hypertension - currently normotensive -repeat EKG unchanged this AM, suspect chronic changes but no recent EKG to compare -HS-trop <20 in ED, no chest pain or dyspnea -plavix held for GI bleeding -metoprolol and losartan held for now -continue rosuvastatin Per cardiology note: "PCI 05/12/2018--JACINDA to mid LAD (2.75 x 30 mm resolute postdilated with 3.0 NC) Cardiac catheterization 05/12/2018--mid LAD 50-60% (FFR 0.79, MLA less than 3 mm), LCx with patent stents, dominant RCA 100% chronic proximal occlusion with [id number] collaterals" # Hypothyroid - continue levothyroxine
[2024-11-18 17:03] LABS: Hematocrit (blood only) 37.3 % (42.0-52.0); Hemoglobin 12.0 g/dl (14.0-18.0); Mean Corpuscular Hemoglobin 29.9 pg (25.0-34.0); Mean Corpuscular Volume 93.0 fL (80.0-100.0); Platelet Count 174 K/uL (130-400); RDW Standard Deviation 47.8 fL (36.4-46.3); Red Blood Count 4.01 M/uL (4.70-6.10); White Blood Count 8.90 K/ul (4.8-10.8)
[2024-11-18] MEDS: ROSUVASTATIN CALCIUM 20 MG TAB PO SCH (21:13)
[2024-11-18 23:18] LABS: Hematocrit (blood only) 33.0 % (42.0-52.0); Hemoglobin 10.5 g/dl (14.0-18.0); Mean Corpuscular Hemoglobin 29.6 pg (25.0-34.0); Mean Corpuscular Volume 93.0 fL (80.0-100.0); Platelet Count 141 K/uL (130-400); RDW Standard Deviation 47.3 fL (36.4-46.3); Red Blood Count 3.55 M/uL (4.70-6.10); White Blood Count 8.05 K/ul (4.8-10.8)
[2024-11-19 06:33] LABS: Anion Gap 4.0 (3-11); Blood Urea Nitrogen 19.0 mg/dl (6-23); Calcium 8.5 mg/dl (8.6-10.3); Carbon Dioxide 25.0 mmol/L (21-32); Chloride 112.0 mmol/L (98-107); Creatinine Clr Calc Pharmacy 72.0 ml/min; Glucose 123.0 mg/dl (70-99(Fasting)); Potassium 4.3 mmol/L (3.5-5.1); Sodium 141.0 mmol/L (136-145)
[2024-11-19 08:28] VITALS: BP 122/79; RESP 20; TEMP 98.4; O2SAT 95
[2024-11-19 08:49] LABS: Hematocrit (blood only) 32.4 % (42.0-52.0); Hemoglobin 10.5 g/dl (14.0-18.0)
--- NOTE | 2024-11-19 10:31 | Electrocardiogram Report ---
Test Reason : Blood Pressure : */* mmHG Vent. Rate : 90 BPM Atrial Rate : 90 BPM P-R Int : 150 ms QRS Dur : 90 ms QT Int : 328 ms P-R-T Axes : 28 32 203 degrees QTcB Int : 401 ms Sinus rhythm with Premature ventricular complexes or Fusion complexes Left ventricular hypertrophy with repolarization abnormality Abnormal ECG When compared with ECG of 17-Nov-2024 22:01, (unconfirmed) Fusion complexes are now Present Premature ventricular complexes are now Present Confirmed by Kg Cheatham ([id number]) on 11/19/2024 10:30:19 AM Referred By: REFERRED SELF Confirmed By: Kg Cheatham
--- NOTE | 2024-11-19 10:31 | Electrocardiogram Report ---
Test Reason : Blood Pressure : */* mmHG Vent. Rate : 94 BPM Atrial Rate : 94 BPM P-R Int : 152 ms QRS Dur : 90 ms QT Int : 346 ms P-R-T Axes : 22 29 246 degrees QTcB Int : 432 ms Normal sinus rhythm Left ventricular hypertrophy with repolarization abnormality Abnormal ECG When compared with ECG of 21-Mar-2008 06:24, No significant change Confirmed by Kg Cheatham ([id number]) on 11/19/2024 10:31:05 AM Referred By: REFERRED SELF Confirmed By: Kg Cheatham
--- NOTE | 2024-11-19 10:46 | Gastroenterology Progress Note ---
Date of Service November 19, 2024 Assessment & Plan (1) Lower GI bleed: Plan: CT imaging supports diverticular bleeding. Rectal bleeding resolved. H/H 10.4/32.4. Patient notes he is being discharged today and notes [facility]. Admission and Anticipated Discharge Date Admission Date: November 18, 2024 Supervising Physician Co-Signing Physician Notes Agree with ANABELA Delatorre as above Patient was discharged prior to my evaluation Subjective Patient is a 79 yo male who presented to [facility] with BRBPR and found to have probable diverticular bleeding. He was seen by [facility] on 11/19/24. The patient notes resolution of his rectal bleeding. H/H 10.5/32.4. No abdominal pain, rectal bleeding, fever, or chills. He notes he is being discharged today and will follow through with getting a colonoscopy as an outpatient. Review of Systems Gastrointestinal: no abdominal pain and no blood in stools Physical Exam Constitutional: well developed Respiratory: normal respiratory effort Gastrointestinal (Abdomen): normal bowel sounds, soft, nontender, no hepatosplenomegaly Results & Data Results & Data Vital Signs (Past 12 Hours) Vital Signs Temp Pulse Pulse Resp BP BP Pulse Ox 11/19/24 08:27 36.9 C 84 20 122/79 95 11/19/24 08:09 78 11/19/24 04:04 36.5 C 77 16 115/74 92 11/19/24 01:00 85 11/19/24 00:19 36.6 C 90 18 120/75 93 O2 Del Method 11/19/24 08:27 Room Air 11/19/24 08:09 11/19/24 04:04 Room Air 11/19/24 01:00 11/19/24 00:19 Room Air PG Care Time/CCT Total # of Minutes Spent Total Time Spent with Patient: Total time spent is greater than 50% in coordination of care (as documented) at patient's floor/unit and/or counseling patient: Coding Level of Care Code 57138 SUB INP/OBS CARE 2/35MIN Diagnoses Lower GI bleed K92.2
[2024-11-19 11:18] VITALS: PULSE 76
== END 2024-11-19 12:30 | disposition home or self-care (01) | DRG 378 ==
LOC: ED 21:12 → SUATTDRO 11-18 01:40 → 4W 11-18 01:40